=== PATIENT | male | born 1970 | race Caucasian/White ===

== ENCOUNTER 2018-09-16 09:51 | Emergency (ER) | payer OTHER ==
[~2018-09-16] VITALS: Ht 188 cm; Wt 79.4 kg
--- OUTSIDE RECORDS SUMMARY | 2018-09-16 09:53 | XMS REPORT | Continuity of Care Document ---
Author Author [facility] donna Organization Interface Address Unknown Phone Unavailable Problems Problem Status Onset Date Classification Date Reported Comments Source FIRST NIGHT [address] Active 02/25/2018 [place] M25.642 - "STIFFNESS OF LEFT HAND, NOT E Active 08/13/2016 [facility] Medications Medication Details Route Status Patient Instructions Ordering Provider Order Date Source Allergies, Adverse Reactions, Alerts Substance Category Reaction Severity Reaction type Status Date Reported Comments Source Immunizations Immunization Date Given Site Status Last Updated Comments Source Results Order Name Results Value Reference Range Date Interpretation Comments Source Sinus wo contrast CT Sinus wo contrast CT EXAM: Sinus wo contrast CT DATE: 03/04/2018 7:59 AM CDT INDICATION: - R09.81 Nasal congestion COMPARISON: None TECHNIQUE: Routine axial images of the paranasal sinuses were obtained without contrast administration DISCUSSION: Mucosal thickening along the floor of both maxillary sinuses with no air-fluid levels. Both infundibuli are patent. No sinus expansion or bony erosion. Mucosal thickening within some ethmoid air cells. The frontal sinus and frontal sinus drainage pathways are clear. The sphenoid sinus and sphenoethmoidal recesses are clear. Mild nasal septum deviation to the right. No nasal mass. The anterior and central skull base are intact. IMPRESSION: Inflammatory mucosal disease involving both maxillary sinuses and some ethmoid air cells. Sinus drainage pathways are clear. Nasal septal deviation. IMPRESSION: 03/04/2018 - - Read by: Madison Todd MD Dictated Date/time: 03/05/18 10:25 Electronically Signed by: Madison Todd MD 03/05/18 10:27 FINAL REPORT [facility] Knee wo contrast MRI Knee wo contrast MRI EXAMINATION: MRI of the left knee without contrast HISTORY: M06.00 Rheumatoid arthritis without rheumatoid factor, unspecified site; intermittent chronic diffuse left knee pain; left knee Wilkinson's cyst COMPARISON: Radiographs dated 08/13/2016 are reviewed. TECHNIQUE: Multiplanar, multisequence magnetic resonance imaging of the left knee is performed with an extremity coil without contrast. FINDINGS: Menisci: --Medial: The anterior horn, body, and posterior horn are intact. --Lateral: The anterior horn, body, and posterior horn are intact. Ligaments: The cruciate ligaments are intact. The medial collateral ligament and lateral collateral ligament complex are intact. Extensor mechanism: The extensor mechanism is intact. Muscles: There is normal signal intensity and muscle bulk of the musculature at the knee. Cartilage: There is no focal chondrosis or subchondral marrow edema. Bone: There are no acute fractures. There are no suspicious bone marrow replacing lesions. Soft tissues: There is a physiologic amount of fluid within the knee. There is a small multiloculated Wilkinson's cyst with extension proximally along the anterior aspect of the distal semimembranosus muscle belly. There is mild subcutaneous edema superficial to the proximal patellar tendon. IMPRESSION: 1. Small, multiloculated left knee Wilkinson's cyst with extension proximally along the anterior aspect of the distal left semimembranosus muscle belly. 2. Nonspecific mild subcutaneous edema superficial to the proximal left patellar tendon which may represent simple edema or mild superficial infrapatellar bursitis. 3. No MR evidence of internal derangement of the left knee. Specifically, the left knee menisci, cruciate ligaments, and collateral ligaments are intact and there is no left knee chondrosis. 06/11/2017 - - Read by: Mickey Story MD Dictated Date/time: 06/11/17 08:07 Electronically Signed by: Mickey Story MD 06/11/17 08:54 FINAL REPORT [facility] Hand wo contrast MRI Hand wo contrast MRI EXAMINATION: MRI of the right hand without contrast HISTORY: Z87.39 Personal history of other diseases of the musculoskeletal system and connective tissue, Arthralgia of right hand - Z87.39 Personal history of other diseases of the musculoskeletal system and connective tissue, Arthralgia of hand right; COMPARISON: Right hand radiographs 08/13/2016 TECHNIQUE: Multiplanar, multisequence magnetic resonance imaging of the right hand is performed with an extremity coil without contrast. FINDINGS: Soft tissue: The soft tissues including intrinsic musculature of the hand, neurovascular bundles, and tendons of the hand appear normal. Cartilage: There is no focal chondrosis or subchondral marrow edema. Bone: There is moderate marrow edema in the volar base of the proximal phalanx of the 5th digit no discrete cortical erosive changes seen at this time. The radial collateral ligaments of the 5th MCP joint are intact unremarkable. IMPRESSION: 1. Moderate marrow edema in the volar base of the proximal phalanx of the 5th digit without discrete MR evidence of cortical erosive change. Differential considerations include bone contusion, nondisplaced avulsion fracture and early erosive change. Correlation with plain films is recommended to further evaluate for presence of erosive change or fracture.. 05/20/2017 - - Read by: Ayaan Levine MD Dictated Date/time: 05/20/17 12:12 Electronically Signed by: Ayaan Levine MD 05/20/17 12:22 FINAL REPORT [facility] Hand 2 views Bilateral DX Hand 2 views Bilateral DX EXAM: XR BILATERAL HAND 2 VIEWS DATE: 08/13/2016 10:39 AM DEBONER INDICATION: Arthritis. COMPARISON: April 19, 2013 and radiograph. TECHNIQUE: PA and lateral radiographs of the bilateral hands. FINDINGS: No acute fracture or malalignment is identified. Joint spaces are preserved. No periarticular erosive changes. The radial carpal joint unremarkable. Ulna styloid process is intact. No soft tissue abnormality is identified. IMPRESSION: No radiological evidence of inflammatory arthropathy. 08/13/2016 - - This report was dictated by a Brilliandeer Looper/Fellow. I have personally reviewed the images as well as the Resident's interpretation and agree with the findings. Read by: Jalen Jimenez MD Resident: Jalen Jimenez MD Dictated Date/time: 08/13/16 12:26 Electronically Signed by: Aristides Campos MD 08/13/16 13:20 FINAL REPORT [facility] Hip bilat w pelvis and both lat hips DX Hip bilat w pelvis and both lat hips DX EXAM: XR BILATERAL HIP 2 VIEWS DATE: 08/13/2016 10:40 AM DEBONER INDICATION: Z87.39 Personal history of other diseases of the musculoskeletal system and connective tissue COMPARISON: None. TECHNIQUE: 2 views of each hip, including the pelvis Laterality: Bilateral FINDINGS: No acute fracture or malalignment is identified. Hip joint spaces are preserved bilaterally. There are bilateral femoral head and neck bumps. Multiple pelvic phleboliths. Sacroiliac joints are symmetric. No subarticular sclerosis or lucency of the sacroiliac joint. Normal spherical appearance of the femoral heads. No soft tissue abnormality is identified. IMPRESSION: 1. No joint abnormality. 2. Changes of femoral acetabular impingement. 08/13/2016 - - This report was dictated by a Brilliandeer Looper/Fellow. I have personally reviewed the images as well as the Resident's interpretation and agree with the findings. Read by: Jalen Jimenez MD Resident: Jalen Jimenez MD Dictated Date/time: 08/13/16 12:43 Electronically Signed by: Aristides Campos MD 08/13/16 13:19 FINAL REPORT [facility] Knee 1-2 Views Bilateral DX Knee 1-2 Views Bilateral DX EXAM: XR BILATERAL KNEE 2 VIEWS DATE: 08/13/2016 10:40 AM DEBONER INDICATION: Polyarthritis COMPARISON: None. TECHNIQUE: Standing AP and lateral radiographs of the bilateral knees FINDINGS: No fracture, dislocation or other acute bony abnormality is identified. Joint spaces are preserved bilaterally. There is no knee joint effusion on either side. No soft tissue abnormality is identified. IMPRESSION: No acute abnormality. 08/13/2016 - - This report was dictated by a Brilliandeer Looper/Fellow. I have personally reviewed the images as well as the Resident's interpretation and agree with the findings. Read by: Jalen Jimenez MD Resident: Jalne Jimenez MD Dictated Date/time: 08/13/16 12:50 Electronically Signed by: Aristides Campos MD 08/13/16 13:18 FINAL REPORT [facility] Foot 3 views bilateral DX Foot 3 views bilateral DX EXAM: XR BILATERAL FOOT 3 VIEWS DATE: 08/13/2016 10:39 AM DEBONER INDICATION: Polyarthritis. COMPARISON: April 19, 2013 TECHNIQUE: AP, lateral and oblique radiographs of the feet Laterality: Bilateral FINDINGS: Mild degenerative changes of the first MTP bilaterally. Mild narrowing of the interphalangeal joints space. No acute fracture or malalignment is identified. No erosive changes identified. No abnormal soft tissue identified. IMPRESSION: No radiological evidence of inflammatory arthritis. 08/13/2016 - - This report was dictated by a Brilliandeer Looper/Fellow. I have personally reviewed the images as well as the Resident's interpretation and agree with the findings. Read by: Jalen Jimenez MD Resident: Jalen Jimenez MD Dictated Date/time: 08/13/16 12:41 Electronically Signed by: Aristides Campos MD 08/13/16 13:19 FINAL REPORT [facility] Hand AP lateral oblique Bilateral Hand AP lateral oblique Bilateral No fracture is identified. No acute osseous abnormality is seen. No radiopaque foreign body is identified. Mild osteopenia is present, particularly involving the periarticular regions. Mild degenerative changes involve the interphalangeal joints with joint space narrowing. No osseous erosion is identified. Deformity of the right fifth metacarpal neck is due to remote injury. Impression: 1. Mild degenerative changes involving the interphalangeal joints. 2. Please see additional comments above. 04/19/2013 - - Read by: Landon Brooke Dictated Date/time: 04/19/13 14:55 Electronically Signed by: Landon Brooke MD 04/19/13 14:57 FINAL REPORT [facility] Foot 3 views Bilateral Foot 3 views Bilateral No fracture is identified. No acute osseous abnormality is seen. No radiopaque foreign body is identified. Minimal left calcaneal spur is identified. Minimal degenerative changes involve the interphalangeal joints with joint space narrowing. No osseous erosion is identified. Impression: 1. No acute osseous abnormality. 2. Minimal interphalangeal joint nonspecific degenerative changes. 04/19/2013 - - Read by: Landon Brooke Dictated Date/time: 04/19/13 14:57 Electronically Signed by: Landon Brooke MD 04/19/13 15:01 FINAL REPORT [facility] Vital Signs Vital Sign Value Date Comments Source Encounters Location Location Details Encounter Type Encounter Number Reason For Visit Attending Provider ADM Date DC Date Status Source [facility] [place] [facility] [id number] [facility] 08/13/2016 08/14/2016 [facility] [place] [facility] - [place] [facility] [id number] [facility] 05/20/2017 05/21/2017 [facility] Funk [facility] [place] [facility] [id number] [facility] 06/11/2017 06/12/2017 [facility] Procedures Procedure Code Date Perfomer Comments Source
--- OUTSIDE RECORDS SUMMARY | 2018-09-16 09:53 | XMS REPORT | Summary of Care ---
Author Author [facility] Outpatient Imaging [facility] Outpatient Imaging [facility] Address Unknown Phone Unavailable Encounter [facility] Encntr_alias(FIN) [id number] Date(s): 08/13/16 - 08/13/16 [facility] Outpatient Imaging [facility] [id number] [facility], [address] [place] [phone] Discharge Disposition: Home or Self Care Attending Physician: Wilmer Garg MD Vital Signs No data available for this section Problem List No data available for this section Allergies, Adverse Reactions, Alerts No data available for this section Medications No data available for this section Results No data available for this section Immunizations No data available for this section Procedures No data available for this section Social History No data available for this section Assessment and Plan No data available for this section
--- OUTSIDE RECORDS SUMMARY | 2018-09-16 09:53 | XMS REPORT | Summary of Care ---
Author Author [facility] [place] Organization [facility] [place] Address Unknown Phone Unavailable Encounter HQ Encntr_alias(FIN) [id number] Date(s): 06/11/17 - 06/11/17 [facility] [place] [address] [place] [phone] Discharge Disposition: Home or Self Care Attending [...]
--- OUTSIDE RECORDS SUMMARY | 2018-09-16 09:53 | XMS REPORT | Summary of Care ---
Author Author [facility] - [place] Organization [facility] [place] Address Unknown Phone Unavailable Encounter HQ Encntr_alias(FIN) [id number] Date(s): 05/20/17 - 05/20/17 [facility] Outpatient [facility] - [place] [address] [place] [phone] Discharge Disposition: Home or Self Care Attending [...]
[2018-09-16] MEDS ORDERED: ASPIRIN 81 MG CHEW TAB PO ONE (10:30)
[2018-09-16 10:33] LABS: BASOPHILS % 0.8 % (0.0-1.0); EOSINOPHILS # (AUTO) 0.4 (0.0-0.4); EOSINOPHILS % 8.2 % (0.0-6.0); HEMATOCRIT 41.9 % (38.2-49.6); HEMOGLOBIN 14.2 g/dL (14.0-18.0); LYMPHOCYTES # (AUTO) 1.8 (1.0-3.2); LYMPHOCYTES % 37.6 % (18.0-39.1); MEAN CORPUSCULAR HGB CONC 33.9 g/dL (31-35); MEAN CORPUSCULAR VOLUME 88.6 fL (81-99); MONOCYTES # (AUTO) 0.4 (0.2-0.8); MONOCYTES % 9.3 % (4.4-11.3); NEUTROPHILS # (AUTO) 2.1 (2.1-6.9); NEUTROPHILS % 43.9 % (38.7-80.0); PLATELET COUNT 248 x10e3/uL (140-360); RED BLOOD COUNT 4.73 x10e6/uL (4.3-5.7); RED CELL DISTRIBUTION WIDTH 11.3 % (11.7-14.4)
[2018-09-16 10:52] LABS: ALANINE AMINOTRANSFERASE 9 IU/L (0-55); ALBUMIN 4.2 g/dL (3.5-5.0); ALBUMIN/GLOBULIN RATIO 1.2 (0.8-2.0); ALKALINE PHOSPHATASE 53 IU/L (40-150); ANION GAP 12.6 mmol/L (8-16); BLOOD UREA NITROGEN 11 mg/dL (7-26); BUN/CREATININE RATIO 11 (6-25); CALCIUM 9.8 mg/dL (8.4-10.2); CARBON DIOXIDE 28 mmol/L (22-29); CHLORIDE 101 mmol/L (98-107); CREATINE KINASE 48 IU/L (30-200); CREATININE, SERUM 0.98 mg/dL (0.72-1.25); EST GLOMERULAR FILTRATION RATE > 60 ML/MIN (60-); GLUCOSE 86 mg/dL (74-118); POTASSIUM 3.6 mmol/L (3.5-5.1); SODIUM 138 mmol/L (136-145)
--- NOTE | 2018-09-16 12:52 | Diagnostic Imaging Report ---
Examination: Single AP view of the chest. COMPARISON: None. INDICATION: Chest pain, dizziness DISCUSSION: Lines/tubes: None. Lungs: The lungs are well inflated and clear. There is no evidence of pneumonia or pulmonary edema. Pleura: There is no pleural effusion or pneumothorax. Heart and mediastinum: The heart and the mediastinum are unremarkable. Bones and soft tissues: No acute bony abnormalities. IMPRESSION: 1. No acute cardiopulmonary abnormalities. Signed by: Dr. Merlin Salter M.D. on 09/16/2018 12:48 PM
[2018-09-16 15:09] LABS: CREATINE KINASE MB 0.5 ng/mL (0-5.0)
[2018-09-16 15:44] VITALS: BP 135/85
== END 2018-09-16 15:57 | disposition home or self-care (01) ==
LOC: ER 09:51
DX: R07.89 Other chest pain (principal); R11.0 Nausea; R53.83 Other fatigue; M06.9 Rheumatoid arthritis, unspecified; F41.9 Anxiety disorder, unspecified; F43.10 Post-traumatic stress disorder, unspecified; G47.30 Sleep apnea, unspecified
CPT/HCPCS: 36415; 71045; 80053; 82550; 82553; 84484; 85025; 93005; 99284

== ENCOUNTER 2020-09-30 13:10 | Emergency (ER) | payer OTHER ==
[~2020-09-30] VITALS: Ht 188 cm; Wt 79.4 kg
[2020-09-30] MEDS ORDERED: SODIUM CHLORIDE 0.9% 1000ML 1,000 ML IV STA (13:40)
[2020-09-30] MEDS ORDERED: PANTOPRAZOLE 40 MG 10ML VIAL IV STA (13:40)
[2020-09-30] MEDS ORDERED: LORAZEPAM INJ 2 MG/ML VIAL IV ONE (13:45)
[2020-09-30 13:53] LABS: BASOPHILS % 0.7 % (0.0-1.0); EOSINOPHILS # (AUTO) 0.2 (0.0-0.4); EOSINOPHILS % 3.8 % (0.0-6.0); HEMATOCRIT 40.5 % (38.2-49.6); LYMPHOCYTES # (AUTO) 1.6 (1.0-3.2); MEAN CORPUSCULAR HEMOGLOBIN 30.2 pg (28-32); MEAN CORPUSCULAR HGB CONC 32.1 g/dL (31-35); MONOCYTES # (AUTO) 0.5 (0.2-0.8); MONOCYTES % 11.3 % (4.4-11.3); NEUTROPHILS % 46.2 % (38.7-80.0); PLATELET COUNT 290 x10e3/uL (140-360); RED BLOOD COUNT 4.31 x10e6/uL (4.3-5.7); RED CELL DISTRIBUTION WIDTH 11.9 % (11.7-14.4)
[2020-09-30 14:05] LABS: INR 0.96; PARTIAL THROMBOPLASTIN TIME 26.3 seconds (23.8-35.5); PROTHROMBIN TIME 13.4 seconds (11.9-14.5)
[2020-09-30 14:15] LABS: ALANINE AMINOTRANSFERASE 19 IU/L (0-55); ALBUMIN 4.2 g/dL (3.5-5.0); ALBUMIN/GLOBULIN RATIO 1.2 (0.8-2.0); ALKALINE PHOSPHATASE 53 IU/L (40-150); AMYLASE 70 U/L (25-125); ANION GAP 14.3 mmol/L (8-16); BLOOD UREA NITROGEN 14 mg/dL (7-26); BUN/CREATININE RATIO 15 (6-25); CALCIUM 9.4 mg/dL (8.4-10.2); CARBON DIOXIDE 27 mmol/L (22-29); CHLORIDE 103 mmol/L (98-107); CREATINE KINASE 54 IU/L (30-200); CREATININE, SERUM 0.94 mg/dL (0.72-1.25); EST GLOMERULAR FILTRATION RATE > 60 ML/MIN (60-); GLUCOSE 97 mg/dL (74-118); LIPASE 30 U/L (8-78); POTASSIUM 4.3 mmol/L (3.5-5.1); SODIUM 140 mmol/L (136-145)
== END 2020-09-30 15:51 | disposition home or self-care (01) ==
LOC: ER 13:34
DX: R10.13 Epigastric pain (principal); F41.9 Anxiety disorder, unspecified; M06.9 Rheumatoid arthritis, unspecified; F43.10 Post-traumatic stress disorder, unspecified
CPT/HCPCS: 36415; 71045; 80053; 82150; 82550; 82553; 83690; 84484; 85025; 85610; 85730; 93005; 99284; C9113; J2060; J7030

== ENCOUNTER 2022-04-15 08:18 | Observation (INO) | payer OTHER ==
[~2022-04-15] VITALS: Ht 188 cm; Wt 86.2 kg
[2022-04-15] MEDS ORDERED: SODIUM CHLORIDE 0.9% 1000ML 1,000 ML IV STA (08:29)
[2022-04-15] MEDS ORDERED: ASPIRIN 81 MG CHEW TAB PO STA (08:29)
[2022-04-15 08:57] LABS: BASOPHILS % 0.8 % (0.0-1.0); EOSINOPHILS # (AUTO) 0.1 (0.0-0.4); EOSINOPHILS % 3.3 % (0.0-6.0); HEMATOCRIT 40.8 % (38.2-49.6); HEMOGLOBIN 13.1 g/dL (14.0-18.0); LYMPHOCYTES # (AUTO) 1.8 (1.0-3.2); MEAN CORPUSCULAR HEMOGLOBIN 30.4 pg (28-32); MEAN CORPUSCULAR HGB CONC 32.1 g/dL (31-35); MEAN CORPUSCULAR VOLUME 94.7 fL (81-99); MONOCYTES # (AUTO) 0.3 (0.2-0.8); MONOCYTES % 7.9 % (4.4-11.3); NEUTROPHILS # (AUTO) 1.4 (2.1-6.9); PLATELET COUNT 304 x10e3/uL (140-360); RED BLOOD COUNT 4.31 x10e6/uL (4.3-5.7); RED CELL DISTRIBUTION WIDTH 11.9 % (11.7-14.4)
[2022-04-15 09:20] LABS: INR 0.99
[2022-04-15 09:21] LABS: ALANINE AMINOTRANSFERASE 11 IU/L (0-55); ALBUMIN 4.1 g/dL (3.5-5.0); ALBUMIN/GLOBULIN RATIO 1.2 (0.8-2.0); ALKALINE PHOSPHATASE 61 IU/L (40-150); ANION GAP 12.3 mmol/L (8-16); BLOOD UREA NITROGEN 9 mg/dL (7-26); BUN/CREATININE RATIO 10 (6-25); CALCIUM 9.5 mg/dL (8.4-10.2); CARBON DIOXIDE 29 mmol/L (22-29); CHLORIDE 103 mmol/L (98-107); CREATINE KINASE 45 IU/L (30-200); CREATININE, SERUM 0.91 mg/dL (0.72-1.25); GLUCOSE 93 mg/dL (74-118); MAGNESIUM 2.5 MG/DL (1.3-2.1); PARTIAL THROMBOPLASTIN TIME 30.2 seconds (23.8-35.5); POTASSIUM 4.3 mmol/L (3.5-5.1); SODIUM 140 mmol/L (136-145)
[2022-04-15] MEDS ORDERED: ONDANSETRON HCL INJ 2MG/ML 2ML 2 MG/ML VIAL IV PRN (09:30)
[2022-04-15] MEDS ORDERED: TEMAZEPAM 15 MG CAP PO PRN (10:45)
[2022-04-15] MEDS ORDERED: HYDRALAZINE HCL 20 MG/ML VIAL IV PRN (10:45)
[2022-04-15] MEDS ORDERED: ACETAMINOPHEN 325 MG TAB PO PRN (10:45)
[2022-04-15] MEDS ORDERED: POLYETHYLENE GLYCOL 3350 17 GM PACK PO PRN (10:45)
[2022-04-15] MEDS: FAMOTIDINE 20 MG/2 ML VIAL IV SCH ×2 (10:58→20:29)
[2022-04-15 14:17] VITALS: BP 110/66
[2022-04-15] MEDS ORDERED: CLONIDINE HCL0.1 MG PO ×2 (16:22)
[2022-04-15] MEDS ORDERED: SERTRALINE HCL100 MG PO (16:22)
[2022-04-15] MEDS ORDERED: SIMVASTATIN20 MG PO (16:22)
[2022-04-15] MEDS ORDERED: BUSPIRONE HCL10 MG PO (16:22)
[2022-04-15] MEDS ORDERED: BUPROPION XL150 MG PO (16:22)
[2022-04-15] MEDS: DOCUSATE SODIUM 100 MG CAP PO SCH (17:24)
[2022-04-15] MEDS: BUSPIRONE HCL 10 MG TABLET PO SCH (17:25)
[2022-04-15 17:41] LABS: CREATINE KINASE 40 IU/L (30-200)
[2022-04-15 19:33] VITALS: BP 115/76
[2022-04-15] MEDS ORDERED: SIMVASTATIN 20 MG TAB PO SCH (21:00)
[2022-04-15] MEDS ORDERED: CLONIDINE HCL 0.1 MG TAB PO SCH (21:00)
[2022-04-15 23:44] VITALS: BP 115/76
[2022-04-15 23:57] VITALS: BP 101/62
[2022-04-16 00:54] LABS: CREATINE KINASE 38 IU/L (30-200)
[2022-04-16 04:54] LABS: BASOPHILS % 0.5 % (0.0-1.0); EOSINOPHILS # (AUTO) 0.1 (0.0-0.4); EOSINOPHILS % 3.3 % (0.0-6.0); HEMOGLOBIN 12.5 g/dL (14.0-18.0); LYMPHOCYTES # (AUTO) 1.8 (1.0-3.2); LYMPHOCYTES % 45.9 % (18.0-39.1); MEAN CORPUSCULAR HEMOGLOBIN 30.7 pg (28-32); MEAN CORPUSCULAR HGB CONC 32.1 g/dL (31-35); MEAN CORPUSCULAR VOLUME 95.8 fL (81-99); MONOCYTES # (AUTO) 0.3 (0.2-0.8); MONOCYTES % 8.4 % (4.4-11.3); NEUTROPHILS # (AUTO) 1.6 (2.1-6.9); NEUTROPHILS % 41.6 % (38.7-80.0); PLATELET COUNT 227 x10e3/uL (140-360); RED BLOOD COUNT 4.07 x10e6/uL (4.3-5.7)
[2022-04-16 04:55] VITALS: BP 108/60
[2022-04-16 05:22] LABS: ALBUMIN 3.5 g/dL (3.5-5.0); ALBUMIN/GLOBULIN RATIO 1.3 (0.8-2.0); ANION GAP 11.9 mmol/L (8-16); CALCIUM 9.1 mg/dL (8.4-10.2); CHOL/HDL RATIO 2.8 (3.9-4.7); CREATININE, SERUM 0.88 mg/dL (0.72-1.25); POTASSIUM 3.9 mmol/L (3.5-5.1)
[2022-04-16 06:06] LABS: MAGNESIUM 2.3 MG/DL (1.3-2.1); PHOSPHORUS 3.4 MG/DL (2.3-4.7)
[2022-04-16 06:27] LABS: THYROID STIMULATING HORMONE 1.495 uIU/mL (0.350-4.940)
[2022-04-16 07:04] LABS: CREATINE KINASE 33 IU/L (30-200)
[2022-04-16 08:35] VITALS: BP 112/71
[2022-04-16 08:56] VITALS: BP 112/71
[2022-04-16] MEDS ORDERED: ASPIRIN 81 MG ENTERIC COATED PO SCH (09:00)
[2022-04-16] MEDS ORDERED: CLONIDINE HCL 0.1 MG TAB PO SCH (09:00)
[2022-04-16] MEDS ORDERED: BUPROPION HCL 150 MG TABCR PO SCH (09:00)
[2022-04-16] MEDS ORDERED: SERTRALINE HCL 100 MG TAB PO SCH (09:00)
[2022-04-16] MEDS: FAMOTIDINE 20 MG/2 ML VIAL IV SCH (09:02)
[2022-04-16] MEDS: DOCUSATE SODIUM 100 MG CAP PO SCH (09:03)
[2022-04-16] MEDS: BUSPIRONE HCL 10 MG TABLET PO SCH (09:03)
[2022-04-16] MEDS ORDERED: ONDANSETRON HCL 4 MG ORAL DISINTEGRATING TAB PO PRN (11:30)
[2022-04-16 11:38] VITALS: BP 111/75
[2022-04-16] MEDS ORDERED: ASPIRIN EC81 MG PO (13:03)
[2022-04-16] MEDS ORDERED: FAMOTIDINE 20 MG TAB PO SCH (21:00)
== END 2022-04-16 15:13 | disposition home or self-care (01) ==
LOC: ER 08:22 → ERHOLD 09:29 → MED/SURG 14:23
PROVIDERS: ADMIT Internal Medicine; ATTEND Internal Medicine
DX: R07.89 Other chest pain (principal); F43.10 Post-traumatic stress disorder, unspecified; F41.9 Anxiety disorder, unspecified; M06.9 Rheumatoid arthritis, unspecified; I10 Essential (primary) hypertension; I45.10 Unspecified right bundle-branch block; R53.83 Other fatigue; Z72.0 Tobacco use; Z72.89 Other problems related to lifestyle; Z82.49 Family history of ischemic heart disease and other diseases of the circulatory system; Z88.8 Allergy status to other drugs, medicaments and biological substances; Z86.16 Personal history of COVID-19; Z20.822 Contact with and (suspected) exposure to COVID-19
CPT/HCPCS: 0223U; 36415 ×2; 71045; 80053 ×2; 80061; 82550 ×2; 82553 ×2; 83036; 83735 ×2; 84100; 84443; 84484 ×2; 85025 ×2; 85610; 85730; 93005; 94799 ×2; 97161; 99284; G0378 ×2